=== PATIENT | female | born 1940 | race Caucasian/White ===

== ENCOUNTER 2017-06-12 17:15 | Observation (INO) | payer MEDICARE ==
[2017-06-12 17:31] LABS: EOSINOPHILS 3.6 % (0.0-6.0); HEMATOCRIT 46.1 % (36.0-48.0); HEMOGLOBIN 15.3 g/dL (12.0-16.0); LYMPHOCYTES 24.6 % (20.0-40.0); MEAN CORPUS. HGB CONCENTRATION 33.3 g/dL (32.0-36.0); MEAN CORPUSCULAR HEMOGLOBIN 31.2 pg (29.0-35.0); MEAN PLATELET VOLUME 8.2 fL (7.4-10.4); MONOCYTES 6.7 % (2.0-10.0); NEUTROPHILS 64.1 % (54.0-75.0); PLATELET COUNT 249 X 10^3uL (130-440); RED BLOOD COUNT 4.92 X 10^6uL (4.20-6.10); RED CELL DISTRIBUTION WIDTH 12.3 % (11.5-14.5); WHITE BLOOD COUNT 11.7 X 10^3uL (3.9-10.7)
[2017-06-12 17:32] LABS: BASOPHIL# 0.1 X 10^3uL (0.0-0.1); EOSINOPHILS# 0.4 X 10^3uL (0.0-0.4); LYMPHOCYTES# 2.9 X 10^3uL (0.8-3.8); MONOCYTES# 0.8 X 10^3uL (0.2-1.0); NEUTROPHILS# 7.5 X 10^3uL (2.6-6.7)
--- NOTE | 2017-06-12 17:38 | RADIOLOGY REPORT ---
HISTORY: Chest pain and shortness of breath COMPARISON: None. FINDINGS: 1 view of the chest obtained. The heart size is within normal limits. Central pulmonary arteries appe ar mildly enlarged. There is diffuse airways thickening. No pneumothorax or airspace infiltrate is de monstrated. There is no definite pleural effusion. The chest wall appears grossly intact. IMPRESSION: 1. Diffuse airways thickening, likely from COPD. Associated mild pulmonary artery enlargement. 2. No acute pneumonia or other acute disease. Final Electronic Signature: This report was electronically signed by Aly Burgess MD on 06/12/2017 5:36 PM. [email or web address] /
[2017-06-12 17:39] LABS: BLOOD UREA NITROGEN 26 mg/dL (7-17); CALCIUM 10.4 mg/dL (8.4-10.2); CHLORIDE 105 mmol/L (98-107); EST GLOMERULAR FILTRATION RATE > 60 mL/min; GLUCOSE 109 mg/dL (70-100); POTASSIUM 3.9 mmol/L (3.5-5.1); SODIUM 141 mmol/L (137-145)
[2017-06-12 17:59] LABS: TROPONIN I < 0.012 ng/mL (0.00-0.034)
[2017-06-12] MEDS ORDERED: NORMAL SALINE 250 ML IV ONE (18:05)
--- NOTE | 2017-06-12 18:58 | CT REPORT ---
HISTORY: Chest pain COMPARISON: None. TECHNIQUE: This examination was performed using automated exposure control, adjustment of mA or kV according to patient size, and/or use of iterative reconstruction technique. Axial CT imaging from the thoracic i nlet through the upper abdomen following administration of IV contrast during peak opacification of t he pulmonary arteries, multiplanar reformatted and 3-D images are evaluated. FINDINGS: No evidence of pulmonary most. Main pulmonary artery is enlarged to 3.7 cm suggesting pulmonary arter ial hypertension. Mild emphysema. Calcified granuloma in the mesial right lower lobe. Patchy groundglass consolidative opacities with mosaic attenuation throughout the bilateral lungs. Small centrilobular nodular opaciti es in the periphery of the right lower and middle lobe. Central airways are clear. No effusion or pne umothorax. Heart size within normal limits. Calcified nodes in the mediastinum consistent with prior granulomato us disease. No mediastinal or hilar adenopathy. There is no focal bone lesion. The visualized organs of the upper abdomen are unremarkable. IMPRESSION: 1. No evidence of pulmonary most. Enlarged pulmonary artery suggesting arterial hypertension. 2. Mild emphysema. 3. Patchy groundglass opacities with mosaic attenuation throughout the bilateral lungs. Findings are nonspecific but may relate to underlying atypical infection or inflammation. 4. Centrilobular nodular opacities in the right middle and lower lobe. Appearance suggestive of infec tion, potentially atypical mycobacterial disease. Final Electronic Signature: This report was electronically signed by Willie Pelaez MD on 06/12/2017 6:55 PM. zak /
[2017-06-12] MEDS ORDERED: HOME MEDICATION LIST NEEDED 1 EA EACH MISC ONE (21:03)
[2017-06-12] MEDS ORDERED: NITROGLYCERIN 0.4 MG TAB.SUBL SUBLINGUAL PRN (21:03)
[2017-06-12] MEDS ORDERED: clonazePAM 0.5 MG TABLET PO PRN (21:18)
--- NOTE | 2017-06-12 21:25 | ER NURSING DOCUMENTATION ---
Nurse's Notes [facility] Name:Jalyn Medeiros Age:76 yrs Sex:Female :1940 Arrival Date:06/12/2017 Time:17:15 BedTrauma-C Private MD: Diagnosis:Precordial Chest Pain;Hypoxia Presentation: 06/12 17:23 Acuity: CHEL 2 st 17:24 Presenting complaint: Patient states: Last night patient felt generally weak, she was rh tired and had some chest tightness and heaviness. Today he symptoms worsened and she "doesn't feel right". Transition of care: Home. Time Last Known Well for patient was Yesterday 1999. 17:24 Method Of Arrival: Private Vehicle Triage Assessment: 17:26 The onset of the patients symptoms was more than six hours ago. General: Appears in no rh apparent distress, Behavior is cooperative. Pain: Complains of pain in chest. EENT: Oral mucosa is dry. Neuro: Level of Consciousness is awake, alert, obeys commands, Reports weakness. Cardiovascular: Capillary refill < 3 seconds Reports fatigue, Rhythm is sinus rhythm Chest pain is described as mild, quality is heaviness, pressure, is located in anterior chest wall began 1 day ago. Cardiovascular: Edema is 1+ to left ankle and right ankle pitting to left ankle and right ankle. Respiratory: Airway is patent Respiratory effort is even, unlabored, Respiratory pattern is regular, symmetrical, Breath sounds are clear bilaterally. Denies shortness of breath. GI: Abdomen is non- distended Denies diarrhea, nausea, vomiting. : No deficits noted. Derm: Skin is intact, is healthy with good turgor, Skin is pink, warm & dry. Musculoskeletal: Circulation, motion, and sensation intact Range of motion intact in all extremities. Historical: - Allergies: Morphine; Erythromycin; Z Pack; - Home Meds: 1. Calcarb 600 With Vitamin D 600 mg(1,500mg) -200 unit oral tab twice a day 2. pravastatin 20 mg oral tab 1 tab once daily 3. aspirin 81 mg oral tab 1 tab once daily 4. levothyroxine 13 mcg oral cap 1 cap once daily 5. 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 - Ebola Screening: : Patient negative for fever greater than or equal to 101.5 degrees Fahrenheit, and additional compatible Ebola Virus Disease symptoms. - Immunization history: Flu Vaccine < 1 year. - Social history: Smoking status: Patient states was never smoker of tobacco. Screenin:29 Infectious Disease Risk None. Abuse screen: Denies threats or abuse. Denies injuries rh from another. Nutritional screening: No deficits noted. Assessment: 17:29 See Triage Assessment done by same RN. rh Vital Signs: 17:20 BP 149 / 59; Pulse 68; Resp 16; Temp 98.2(O); Pulse Ox 85% on R/A; Weight 73.94 kg; rh Height 5 ft. 4 in. (162.56 cm); Pain 0/10; 17:29 Pulse 63; Resp 17; Pulse Ox 94% on 2 lpm NC; rh 17:54 BP 118 / 47; Pulse 62; Resp 16; Pulse Ox 92% on 2 lpm NC; rh 19:38 BP 131 / 60; Pulse 64; Resp 17; Pulse Ox 95% on 2 lpm NC; rh 17:20 Body Mass Index 27.98 (73.94 kg, 162.56 cm) rh ED Course: 17:16 Patient arrived in ED. dp 17:17 EKG done. (by ED staff). Reviewed by Toby Azar MD. Oxygen Oxygen administration via rh nasal cannula @ 2L/min. 17:17 lunchroom monitor on. Pulse ox on. NIBP on. rh 17:22 Inserted peripheral IV: 20 gauge in left antecubital area and blood collected. st 17:[address] 17:24 Jenny Tan is Primary Nurse. rh 17:28 Garrett Hills MD is Attending Physician. tl1 17:28 Attending Physician role handed off by Garrett Hills MD 17:28 Toby Azar MD is Attending Physician. jm 17:29 Notified ED Physician of patient's arrival and chief complaint. Dr. Azar notified. rh 17:29 Valuables Remains with patient Patient has correct armband on for positive rh identification. Placed in gown. Bed in low position. Call light in reach. Side rails up X 1. 17:29 EKG attached sc1 21:08 Jose Son MD is Admitting Physician. cd Administered Medications: 17:32 Drug: Aspirin 81 mg, 4 tabs, total of 324 mg - Aspirin 81 mg; Route: PO; rh 17:43 Follow up: Response: No adverse reaction rh 17:51 Drug: NS 0.9% 250 ml; Route: IV; Rate: bolus; Site: right antecubital; rh 18:10 Follow up: IV Status: Completed infusion; IV Intake: 250ml Point of Care Testing: Urine Dip: 18:24 pH: 6.0; ; Specific [place]: 1.010; Ketones: Negative; Glucose: Negative; Protein: st Negative; Leukocytes: Negative; Nitrite: Negative ; Blood: Negative; Bilirubin: Negative ; Urobilinogen: Normal Intake: 18:10 IV: 250ml; Total: 250ml. rh Outcome: 21:08 Decision to Admit by Provider. cd 21:23 Admitted to Med/surg accompanied by nurse, via stretcher, with chart. rh 21:23 Condition: stable 21:23 Discharge Assessment: Patient awake, alert and oriented x 3. No cognitive and/or functional deficits noted. Patient verbalized understanding of disposition instructions. 21:23 Instructed on need for transfer 21:24 Patient left the ED. Signatures: Jeniffer Najera RN RN st Campbell, Sandy, RN RN sc1 Alin Butler MD MD cd Meyer, John, MD MD jm Leigh, Tom, MD MD tl1 Jenny Tan Inessa Begum
--- NOTE | 2017-06-12 21:25 | ER PHYSICIAN DOCUMENTATION ---
Physician Documentation [facility] Name:Jalyn Medeiros Age:76 yrs Sex:Female :1940 Arrival Date:06/12/2017 Time:17:15 BedTrauma-C Private MD: Toby Luciano Disposition: 06/12/17 21:08 Admit ordered for Jose Son. Preliminary diagnosis are Precordial Chest Pain, Hypoxia. - Bed requested for Medical/Surgical. - Condition is Fair. - Problem is new. - Symptoms have improved. 23 HR OBS Yes HPI: 06/12 17:56 This 76 yrs old Female presents to ER via Private Vehicle with complaints of jm Weakness, Chest Tightness. 17:56 The patient presents to the emergency department with weakness of the entire body, jm generalized weakness, that is moderate. 17:58 Onset: The symptom(s)/episode began/occurred yesterday. Context: occurred while the jm patient was at rest. Associated signs and symptoms: Pertinent positives: BALDERRAMA and some upper L chest discomfort. . Severity of symptoms: in the emergency department the symptoms are unchanged. Current symptoms: same. The patient has not experienced similar symptoms in the past. The patient has not recently seen a physician. 76 yo here for BALDERRAMA and generalized weakness. Pt states she has no energy. . Historical: - Allergies: Morphine; Erythromycin; Z Pack; - Home Meds: 1. Calcarb 600 With Vitamin D 600 mg(1,500mg) -200 unit oral tab twice a day 2. pravastatin 20 mg oral tab 1 tab once daily 3. aspirin 81 mg oral tab 1 tab once daily 4. levothyroxine 13 mcg oral cap 1 cap once daily 5. 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 - Ebola Screening: : Patient negative for fever greater than or equal to 101.5 degrees Fahrenheit, and additional compatible Ebola Virus Disease symptoms. - Immunization history: Flu Vaccine < 1 year. - Social history: Smoking status: Patient states was never smoker of tobacco. ROS: 18:15 Constitutional: Positive for fatigue, malaise. jm 18:15 ENT: Negative for rhinorrhea, sinus congestion, sinus pain, sore throat. 18:15 Neck: Negative for injury or acute deformity, stiffness. 18:15 Cardiovascular: Positive for chest pain, edema. 18:15 Respiratory: Positive for dyspnea on exertion, Negative for shortness of breath. 18:15 Abdomen/GI: Negative for abdominal pain, nausea, vomiting, diarrhea. 18:15 : Negative for urinary symptoms, urinary frequency, hematuria, pelvic pain. 18:15 Neuro: Positive for weakness, Negative for headache. 18:15 All other systems are negative. Exam: 18:17 Constitutional: The patient appears alert, awake. jm 18:17 Eyes: Periorbital structures: appear normal, Pupils: equal, round, and reactive to light and accomodation. 18:17 ENT: Mouth: is normal, Posterior pharynx: is normal. 18:17 Neck: Thyroid: appears normal, Trachea: is midline with no obvious abnormalities. 18:17 Cardiovascular: Rate: normal, Rhythm: regular. 18:17 Respiratory: Respirations: normal, Breath sounds: are normal. 18:17 Abdomen/GI: Bowel sounds: normal, Palpation: abdomen is soft and non-tender. 18:17 : CVA tenderness, is absent, Bladder: is normal. 18:17 Musculoskeletal/extremity: Weight bearing: able to fully bear weight, Calves: are non-tender, have equal circumference. 18:17 Neuro: Mentation: is normal, Memory: is normal, Motor: is normal, Gait: is steady. 18:17 Psych: Behavior/mood is pleasant, cooperative, Affect is calm. Vital Signs: 17:20 BP 149 / 59; Pulse 68; Resp 16; Temp 98.2(O); Pulse Ox 85% on R/A; Weight 73.94 kg; rh Height 5 ft. 4 in. (162.56 cm); Pain 0/10; 17:29 Pulse 63; Resp 17; Pulse Ox 94% on 2 lpm NC; rh 17:54 BP 118 / 47; Pulse 62; Resp 16; Pulse Ox 92% on 2 lpm NC; rh 19:38 BP 131 / 60; Pulse 64; Resp 17; Pulse Ox 95% on 2 lpm NC; rh 17:20 Body Mass Index 27.98 (73.94 kg, 162.56 cm) MDM: 17:28 Patient medically screened. tl1 17:29 EKG attached sc1 18:19 Neurological re-evaluation: normal neurological exam including cranial nerves, jm orientation, mentation, motor and sensory exam, cerebellar testing, GCS normal, and normal gait. Data reviewed: vital signs, nurses notes. Test interpretation: by ED physician or midlevel provider: plain radiologic studies, ECG. Counseling: I had a detailed discussion with the patient and/or guardian regarding: the historical points, exam findings, and any diagnostic results supporting the discharge/admit diagnosis, lab results, radiology results. 06/12 17:32 Order name: CBC AUTO DIF, MDIF/RMOR IF IND; Complete Time: 18:05 [facility] 06/12 17:59 Order name: DDIMER; Complete Time: 18:05 [facility] 06/12 18:00 Order name: BASIC METABOLIC PANEL; Complete Time: 18:05 [facility] 06/12 18:00 Order name: MAGNESIUM; Complete Time: 18:05 [facility] 06/12 18:00 Order name: BNP,NT-PRO; Complete Time: 18:05 [facility] 06/12 18:00 Order name: TROPONIN I; Complete Time: 18:05 [facility] 06/13 09:25 Order name: LIPID PANEL [facility] 06/13 09:25 Order name: TROPONIN I [facility] 06/13 14:43 Order name: SPUTUM CULTURE AND GRAM STAIN [facility] 06/12 17:40 Order name: CHEST; [place] [id number]; Complete Time: 17:47 [facility] 06/12 18:59 Order name: CAT SCAN; CHEST ANGIO [id number] [facility] 06/12 17:24 Order name: Cardiac Monitoring - Continuous; Complete Time: 17:24 06/12 17:24 Order name: Oxygen; Complete Time: 17:24 06/12 17:24 Order name: EKG - 12 Lead; Complete Time: 17:24 06/12 17:24 Order name: Pulse Ox Continuous; Complete Time: 17:24 rh Dispensed Medications: 17:32 Drug: Aspirin 81 mg, 4 tabs, total of 324 mg - Aspirin 81 mg; Route: PO; rh 17:43 Follow up: Response: No adverse reaction rh 17:51 Drug: NS 0.9% 250 ml; Route: IV; Rate: bolus; Site: right antecubital; rh 18:10 Follow up: IV Status: Completed infusion; IV Intake: 250ml rh Point of Care Testing: Urine Dip: 18:24 pH: 6.0; ; Specific [place]: 1.010; Ketones: Negative; Glucose: Negative; Protein: st Negative; Leukocytes: Negative; Nitrite: Negative ; Blood: Negative; Bilirubin: Negative ; Urobilinogen: Normal Signatures: Myla Ryan, RN RN sc1 Alin Butler MD MD cd Meyer, John, MD MD jm Leigh, Tom, MD MD [facility] Jenny Tan
[2017-06-12] MEDS: NITROGLYCERIN OINT 1 GM PACKET TOP SCH (22:24)
[2017-06-13] MEDS: NITROGLYCERIN OINT 1 GM PACKET TOP SCH ×2 (04:25→09:57)
[2017-06-13] MEDS ORDERED: LEVOTHYROXINE 25 MCG TABLET PO SCH (06:30)
[2017-06-13] MEDS ORDERED: LEVOTHYROXINE 112 MCG TABLET PO SCH (06:30)
[2017-06-13 07:38] VITALS: RESP 18
--- NOTE | 2017-06-13 08:12 | PROGRESS NOTE: IM APSO ---
Assessment and Plan - Date of Encounter Date of Encounter: 06/13/17 (1) Chest tightness or pressure Status: Acute Assessment and plan: Patient is to undergo cardiac work up this morning, but I suspect the cause is lung infection, based on ground glass opacities on CTA and on her symptoms of fatigue and malaise. She also has an elevated WBC. I will ask Respiratory Therapy for a sputum induction and refer the patient to Pulmonology. Consider PPD placement and empiric treatment with Clarithromycin for MARCEL, although that may confound the pulmonary evaluation, and the CTA findings are not reported as "tree in bud," or as showing bronchiectasis. However, the patient's age and sex and presentation are consistent with MARCEL. Current Visit: Yes - Time Spent With Patient Total time spent with greater than 50% in coordination of care (as documented) at patient's floor/unit and/or counseling patient: 16-24 minutes IM: PN Subjective Interval history: Patient continues to feel very fatigued. She is not coughing, nor febrile. However, I note that the CTA report shows patchy ground glass infiltrates, and the patient has an elevated white blood cell count of 11,700. These findings, combined with her female sex and age are very suggestive of MARCEL infection. I will await her cardiac testing, and then instigate evaluation with sputum induction and PPD placement. After those are obtained, she should be empirically placed on Clarithromycin. General: fatigue, malaise HEENT: no headache, no sore throat Cardiovascular: chest pressure, no palpitations, no dizziness Respiratory: SOB, no cough, no sputum, no wheeze Gastrointestinal: no abdominal pain Genitourinary: no dysuria Musculoskeletal: no pain, no weakness Integumentary: no rashes Neurological: no headache IM: PN Objective Exam - I&O/Vital Signs I&O: Intake & Output 06/12/17 06/13/17 06/13/17 21:59 05:59 13:59 Intake Total 100 Output Total 150 Balance -50 Weight 73.936 kg 73.936 kg Intake: Oral 100 Output: Urine 150 Other: Urine Appearance Clear Urine Color Yellow Voiding Method Toilet # Voids 1 Vital Signs: Last Vital Signs Temp 36.7 C 06/13/17 07:00 Pulse 62 06/13/17 07:00 Resp 18 06/13/17 07:00 BP 127/61 06/13/17 07:00 Pulse Ox 94 06/13/17 07:00 Oxygen Flow Rate 2 Oxygen Delivery Method Nasal Cannula - Eye Eye exam: Absent: conjunctival injection Pupils: Present: PERRL - ENT ENT exam: Present: mucous membranes moist - Neck Neck exam: Present: full ROM, tenderness. Absent: lymphadenopathy - Respiratory Respiratory exam: Present: clear - Cardiovascular Cardiovascular exam: Present: RRR, systolic murmur - GI/Abdominal GI/Abdominal exam: Present: normal bowel sounds, soft. Absent: tenderness - External exam: Present: ecchymosis - Extremities Exam Extremities exam: Absent: calf tenderness, edema, tenderness - Neurological Exam Neurological exam: Present: normal gait - Psychiatric Psychiatric exam: Present: normal affect - Allied Health Notes Allied health notes reviewed: nursing - Lab Labs: Laboratory Last Values WBC 11.7 X 10^3uL (3.9-10.7) H 06/12/17 17:15 RBC 4.92 X 10^6uL (4.20-6.10) 06/12/17 17:15 Hgb 15.3 g/dL (12.0-16.0) 06/12/17 17:15 Hct 46.1 % (36.0-48.0) 06/12/17 17:15 MCV 94.0 fL (80.0-100.0) D 06/12/17 17:15 MCH 31.2 pg (29.0-35.0) 06/12/17 17:15 MCHC 33.3 g/dL (32.0-36.0) 06/12/17 17:15 RDW 12.3 % (11.5-14.5) 06/12/17 17:15 Plt Count 249 X 10^3uL (130-440) 06/12/17 17:15 MPV 8.2 fL (7.4-10.4) 06/12/17 17:15 Neutrophils % 64.1 % (54.0-75.0) 06/12/17 17:15 Lymphocytes % 24.6 % (20.0-40.0) 06/12/17 17:15 Eosinophils % 3.6 % (0.0-6.0) 06/12/17 17:15 Basophils % 1.0 % (0.0-2.0) 06/12/17 17:15 Neutrophils # 7.5 X 10^3uL (2.6-6.7) H 06/12/17 17:15 Lymphocytes # 2.9 X 10^3uL (0.8-3.8) 06/12/17 17:15 Monocytes 6.7 % (2.0-10.0) 06/12/17 17:15 Monocytes # 0.8 X 10^3uL (0.2-1.0) 06/12/17 17:15 Eosinophils # 0.4 X 10^3uL (0.0-0.4) 06/12/17 17:15 Basophils # 0.1 X 10^3uL (0.0-0.1) 06/12/17 17:15 D-Dimer 284 ng/mL H* 06/12/17 17:15 Sodium 141 mmol/L (137-145) 06/12/17 17:15 Potassium 3.9 mmol/L (3.5-5.1) 06/12/17 17:15 Chloride 105 mmol/L (98-107) 06/12/17 17:15 Carbon Dioxide 24 mmol/L (22-30) 06/12/17 17:15 BUN 26 mg/dL (7-17) H 06/12/17 17:15 Creatinine 0.8 mg/dL (0.5-1.0) 06/12/17 17:15 GFR Calculation > 60 mL/min 06/12/17 17:15 Glucose 109 mg/dL (70-100) H 06/12/17 17:15 Calcium 10.4 mg/dL (8.4-10.2) H 06/12/17 17:15 Magnesium 2.0 mg/dL (1.6-2.3) 06/12/17 17:15 Troponin I < 0.012 ng/mL (0.00-0.034) 06/12/17 17:15 NT-Pro-B Natriuret Pep 77 pg/mL (<450) 06/12/17 17:15 Quality Questions - VTE Prophylaxis Assessment VTE Present on Admission?: No Patient at risk for venous thromboembolism?: Yes VTE Risk Level: Moderate Risk Pharmaceutical VTE prophylaxis contraindication reason: N/A- VTE prophylaxsis ordered Mechanical VTE prophylaxis contraindication reason: N/A- VTE prophylaxsis ordered
[2017-06-13] MEDS ORDERED: FISH OIL/OMEGA-3 FATTY ACIDS 1,000 MG CAPSULE PO SCH (09:00)
[2017-06-13] MEDS ORDERED: ENOXAPARIN SODIUM 40 MG/0.4 ML SYR SUBCUT SCH (09:00)
--- NOTE | 2017-06-13 09:05 | HISTORY & PHYSICAL ---
HISTORY AND PHYSICAL FOR [facility] DATE OF ADMISSION: 06/12/17 PCP: Allison Ahmadi MD ADMITTING PHYSICIAN: Jose Son MD ~ Assessment and Plan: Chest tightness Last evening this patient noticed some fatigue and slight left upper chest and neck tightness. ~~It has continued on and off for the past 24 hours. During her ED stay she did not have the chest tightness, but initially felt tired. ~After getting on oxygen she felt better. ~This morning she was able to walk at the [employer], but then came home very tired and slept for 2 hours. ~She denies any shortness of breath, but was found to be hypoxic here in the ED. ~ Refer to the section on hypoxia. 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 ~Grade 1 diastolic dysfunction, mild to moderate aortic regurgitation and mild mitral regurgitation with annular calcifications. ~ Assessment:~Unexplained chest tightness at rest with hypoxia. ~Patient with known coronary artery disease. ~Need to rule out unstable angina/FL. Plan:~Patient initially was very reluctant to come in the hospital but agreed when I explained that it would expedite her cardiology workup. ~She will be seen by Dr. Cage tomorrow. ~I have tentatively ordered a echo, stress echo, and carotid Doppler study. ~In the morning she will have a repeat EKG and troponin level. ~ ~ abnormal electrocardiogram (ECG) (EKG) Refer to the section on chest tightness. ~ HLD (hyperlipidemia) Well-controlled on pravastatin 40 mg nightly. ~ Bilateral carotid artery stenosis A carotid Doppler scan in 2013 showed bilateral proximal internal carotid artery stenosis at 115%. ~She is scheduled for routine follow-up scan in June. ~ Aortic valve disorders In 2013, she had moderate aortic regurgitation with normal ejection fraction. ~ Refer to the data section ~ Hypoxia In the emergency department this evening her SPO2 on room air was consistently in the mid 80s. ~She required 2 L of oxygen to maintain saturations in the 90s. ~According to the patient she has had some transient hypoxia in the doctor's office, which she attributed to her renal syndrome. ~She monitors her own oxygen at home and typically it is at 90%, but occasionally drops into the upper 80s. ~She has no known current pulmonary disease, but had asthma as a child. ~She has never smoked. ~CTA ruled out pulmonary emboli. ~She had some thickened airways, but has had no recent cough or fever. ~ ~~ Subjective: ~ Patient ID: Jalyn Medeiros~is a 76 y.o.~female~who presents to [facility]~for an annual preventive visit. ~ HPI Refer to the A&P section above for an additional problem-oriented history, assessment, and plan. ~ CURRENT MEDICATIONS: Current Outpatient Prescriptions Medication Sig aspirin 81 mg Tab tablet Take 81 mg by mouth daily. CALCIUM CARBONATE (CALCIUM 500 PO) Take ~by mouth 2 times daily. ERGOCALCIFEROL, VITAMIN D2, (VITAMIN D PO) Take 200 Int'l Units by mouth 2 times daily. fluticasone (FLONASE) 50 mcg/actuation nasal spray ~ naproxen (NAPROSYN) 500 mg tablet Take 500 mg by mouth as needed. omega-3 fatty acids-vitamin E (FISH OIL) 1,000 mg capsule Take 1,200 mg by mouth daily. pravastatin (PRAVACHOL) 40 mg tablet TAKE ONE TABLET BY MOUTH ONE TIME DAILY SYNTHROID (LEVOTHYROXINE) 112 mcg tablet Take 1,112 mcg by mouth daily. No current facility-administered medications for this visit. ALLERGIES:~Azithromycin and Morphine I have reviewed, verified and personally updated the past medical~history. Past Medical History: Diagnosis Date HTN (hypertension) ~ Hypothyroidism ~ Occlusion and stenosis of carotid artery without mention of cerebral infarction ~ PVD (peripheral vascular disease) (HC code) ~ Scarlet fever Varicella ~ Past Surgical History Past Surgical History: Procedure Laterality Date CARDIOVASCULAR STRESS TEST HIP SURGERY TOTAL HIP ARTHROPLASTY ~ TOTAL KNEE ARTHROPLASTY Family History Problem Relation Age of Onset Heart attack Maternal Grandfather ~ Elevated lipids Brother ~ TIA/Stroke ~ ~ TIA/Stroke Sister ~ ~ ~ from a brain tumor Heart surgery Mother ~ ~ ~ quad bypass TIA/Stroke Mother ~ Heart defect Mother ~ ~ ~ enlarged heart TIA/Stroke Father ~ Hypertension Father ~ ~ Social History Marital status: ~ Social History Main Topics Smoking status: Never Smoker ~ Review of Systems Constitutional: Positive for activity change~(Decreased stamina)~and fatigue. Negative for chills, diaphoresis~and fever. HENT: Negative for nosebleeds. ~ Respiratory: Negative for apnea, cough, shortness of breath~and wheezing. ~ Cardiovascular: Positive for chest pain~(Mild intermittent tightness). Negative for palpitations~and leg swelling. Gastrointestinal: Negative for abdominal pain, constipation~and nausea. Musculoskeletal: Negative for arthralgias~and myalgias. Skin: Negative for pallor. Neurological: Negative for weakness, light-headedness~and headaches. Psychiatric/Behavioral: The patient is nervous/anxious. ~ ~ ~~ Objective: Vital Signs: T 98.2~~~~~~BP 149/59 p 68 r 16~~~SpO2 85% on room air and 95% on 2 L~~~~Wt. 73.9 kg ~~~~Ht. 162 cm Physical Exam~ Constitutional: She is oriented to person, place, and time. No distress. Neck: No JVD~present. Cardiovascular: Normal rate~and regular rhythm. ~ Murmur~heard. ~Systolic~murmur is present with a grade of 2/6 Pulses: ~~~~~Radial pulses are 2+~on the right side, and 2+~on the left side. Pulmonary/Chest: Breath sounds normal. No respiratory distress. Musculoskeletal: She exhibits no edema. Neurological: She is alert~and oriented to person, place, and time. Psychiatric: She has a normal mood and affect. ~ DATA: Laboratory results reviewed and are pertinent for WBC 11.7, hemoglobin 15, hematocrit 46, platelets 249,000, neutrophils 64%, lymphocytes 25%. ~D-dimer 284 ,~random glucose 109,~sodium 141, potassium 3.9, calcium 10.4, magnesium 2.0, NT proBNP 77, troponin less than 0.012. Lipid panel from 02/10/17 showed an LDL of 86, HDL 69, and triglycerides 76. ~ Radiology study reports viewed and are pertinent for CTA~scan of the chest showed 1. Diffuse airway thickening likely from COPD. ~Associated with mild pulmonary artery enlargement. 2. ~No acute pneumonia or other acute disease. ~ Her EKG showed poor R-wave progression anteriorly consistent with an old anterior FL. ~Her T waves in V2 were downgoing, in contrast to 2013 when they were upright in V2. ~Otherwise there is no significant change. ~~ Jose Son MD ~ NNA
[2017-06-13 09:08] LABS: CALCULATED LDL 63 mg/dL; CHOL/HDL RATIO 3 (<4); CHOLESTEROL 133 mg/dL; HDL CHOLESTEROL 52 mg/dL; TRIGLYCERIDES 88 mg/dL; VLDL CHOLESTEROL 18 mg/dL (<30)
[2017-06-13 09:24] LABS: TROPONIN I < 0.012 ng/mL (0.00-0.034)
[2017-06-13] MEDS ORDERED: SODIUM CHLORIDE 3% ONE (09:25)
[2017-06-13 11:14] VITALS: BP 146/76; PULSE 78; TEMP 97.4; O2SAT 87
[2017-06-13] MEDS ORDERED: NAPROXEN 250 MG TABLET PO PRN (12:58)
[2017-06-13] MEDS ORDERED: FLUTICASONE NASAL 120 SPRAY BTL NASAL PRN ×2 (12:58→13:24)
[2017-06-13] MEDS ORDERED: DOXYCYCLINE 100 MG CAPSULE PO SCH (13:00)
--- NOTE | 2017-06-13 13:01 | DC SUMMARY: IM Note ---
Discharge Summary: IM/Peds Provider: Date of Admission: 06/12/17 Admitting Provider: HELENA DEL VALLE MD Attending Provider: HALEIGH TEAGUE MD Discharging Provider: HALEIGH TEAGUE MD Primary Care Provider: Discharge Date: 06/13/17 Consults: 06/13/17 07:03 Cardiology Consult [CONS] Routine Reason: chest tightness at rest and hypoxia. Hx of CAD, mild carotid atherosclerosis, and mod. aortic regurg. I ordered an echo, stress echo and carotids. - Diagnosis (1) Chest tightness or pressure Status: Acute Hospital Course: Patient was admitted for atypical chest pain. She had testing with a negative stress echo, echo and carotid dopplers. Troponins were normal. CTA showed no emboli and ground glass opacities. MARCEL was suspected, and sputum was induced by respiratory therapy and is pending. Patient was seen in consultation by Dr. Wan of Pulmonology, who recommended the start of Doxycycline for 7 days, and will follow up with patient 07/11. Bronchoscopy may be considered at that time. Patient was also seen in consultation by Dr. Cage of Cardiology and has Cardiology follow up in a few days. - Time Spent with Patient Total time spent providing and/or coordinating discharge services: Time with patient DS: Greater than 30 minutes Discharge - Patient/Caregiver Discharge Instructions Activity Level: Keep activity light until feeling better Diet: Cardiac Follow up: HALEIGH TEAGUE MD [Primary Care Provider] - 10 Days Overall discharge status: patient is progressing back to baseline Home Medications: Doxycycline [Doxycycline Hyclate*] 100 mg PO BID #14 cap Disposition: HOME, SELF-CARE Discharge Summary Data - Medication History Medication History: Home Medications Albuterol Hfa [Proventil Hfa Inhaler] 1 inh IH QID PRN 06/13/17 Calcium Carbonate/Vitamin D3 [Calcium 600 + Vit D Tablet] 2 each PO DAILY Fluticasone Nasal [Flonase Nasal [place]*] 2 sprays NS DAILY PRN 06/13/17 Levothyroxine [Synthroid*] 112 mcg PO DAILY 06/13/17 Naproxen [Naprosyn*] 500 mg PO BID PRN 06/13/17 [place]-3 Fatty Acids [Fish Oil Concentrate] 1,000 mg PO DAILY 06/13/17 Pravastatin Sodium [Pravachol] 40 mg PO HS 06/13/17 aspirin EC [Aspirin EC*] 81 mg PO DAILY 06/13/17 clonazePAM [Klonopin*] 0.5 mg PO Q8H PRN 06/13/17 Inpatient Medications 06/13/17 06:30 Levothyroxine [Synthroid] 112 mcg PO DAILY@62906/13/17 21:00 Pravastatin Sodium [Pravachol] 40 mg PO HS Procedures and tests throughout hospitalization: Pending Orders 06/13/17 06:30 Levothyroxine [Synthroid] 112 mcg PO DAILY@62906/13/17 07:03 Cardiology Consult [CONS] Routine 06/13/17 07:06 Carotid Duplex, Bilateral [CARDIO] Routine 06/13/17 08:25 Sputum Specimen Collection by RT [RT] . 06/13/17 10:55 Sputum Specimen Collection by RT [RT] . 06/13/17 21:00 Pravastatin Sodium [Pravachol] 40 mg PO HS Labs on day of discharge: Labs from last 24 hours 06/13/17 06:10 Troponin I < 0.012 Triglycerides 88 Cholesterol 133 LDL Cholesterol, Calc 63 VLDL Cholesterol, Calc 18 HDL Cholesterol 52 Cholesterol/HDL Ratio 3 IM: Discharge Physical Exam - I&O/Vital Signs I&O: Intake & Output 06/12/17 06/13/17 06/13/17 21:59 05:59 13:59 Intake Total 100 Output Total 150 Balance -50 Weight 73.936 kg 73.936 kg Intake: Oral 100 Output: Urine 150 Other: Urine Appearance Clear Clear Urine Color Yellow Yellow Voiding Method Toilet Toilet # Voids 1 Vital Signs: Last Vital Signs Temp 36.3 C L 06/13/17 11:00 Pulse 78 06/13/17 11:00 Resp 18 06/13/17 11:00 BP 146/76 06/13/17 11:00 Pulse Ox 87 L 06/13/17 11:00 Oxygen Flow Rate 2 Oxygen Delivery Method Room Air - Eye Eye exam: Absent: conjunctival injection Pupils: Present: PERRL - ENT ENT exam: Present: mucous membranes moist - Neck Neck exam: Present: full ROM, tenderness. Absent: lymphadenopathy - Respiratory Respiratory exam: Present: clear - Cardiovascular Cardiovascular exam: Present: RRR, systolic murmur - GI/Abdominal GI/Abdominal exam: Present: normal bowel sounds, soft. Absent: tenderness - External exam: Present: ecchymosis - Extremities Exam Extremities exam: Absent: calf tenderness, edema, tenderness - Neurological Exam Neurological exam: Present: normal gait - Psychiatric Psychiatric exam: Present: normal affect - Allied Health Notes Allied health notes reviewed: nursing
[2017-06-13] MEDS ORDERED: NON-FORMULARY MEDICATION (Pravastatin Sodium [Pravastatin Sodium] 40 MG) PO SCH (21:00)
[2017-06-13] MEDS ORDERED: PRAVASTATIN SODIUM 40 MG TABLET PO SCH ×2 (21:00)
[2017-06-14] MEDS ORDERED: CALCIUM CARBONATE PO SCH (09:00)
[2017-06-14] MEDS ORDERED: CALCIUM/VIT D 600 MG/400 IU 1 TAB TABLET PO SCH (09:00)
[2017-06-14] MEDS ORDERED: VITAMIN D3 PO SCH (09:00)
[2017-06-14] MEDS ORDERED: [UNRECOGNIZED DRUG - OTHER] PO SCH (09:00)
== END 2017-06-13 13:06 | disposition home or self-care (01) ==
LOC: ER 17:15 → IN 21:23
PROVIDERS: ADMIT Family Medicine; ATTEND Internal Medicine
DX: R07.89 Other chest pain (principal); E78.5 Hyperlipidemia, unspecified; I65.23 Occlusion and stenosis of bilateral carotid arteries; I35.1 Nonrheumatic aortic (valve) insufficiency; R09.02 Hypoxemia; E03.9 Hypothyroidism, unspecified; Z79.899 Other long term (current) drug therapy
CPT/HCPCS: 36415; 71010; 71275; 80048; 80061; 83735; 83880; 84484; 85025; 85379; 87070; 87116; 87205; 87880; 93005; 93041; 93306; 93351; 93880; 99285; G0378; J1650; J7050